=== PATIENT | male | born 1985 | race Caucasian/White ===

== ENCOUNTER 2021-02-22 07:07 | Day surgery (SDC) | payer BC ==
--- NOTE | 2021-02-19 12:00 | HP ---
PATIENT: RONNY KING MEDICAL RECORD: [id number] ACCOUNT: [id number] LOCATION:[facility] : 81 ADMISSION DATE: 02/22/21 PCP: DEBORA RAYO DO HISTORY AND PHYSICAL EXAMINATION HISTORY OF PRESENT ILLNESS: Ronny is 35. He has significant problems with his sleep, unable to use CPAP, combination of problems. He has nasal obstruction, snoring and severe apnea. He has been admitted for a tonsillectomy, uvulectomy, septoplasty and bilateral inferior turbinate reduction. PAST MEDICAL HISTORY: Sleep apnea, hypertension. MEDICATIONS: Lisinopril. ALLERGIES: No known drug allergies. PHYSICAL EXAMINATION: GENERAL: Healthy-appearing, good historian. Normal voice. FACE: Normal, symmetric, no lesions. EYES: Sclerae and conjunctivae are normal. EARS: Canals and TMs are normal. NOSE: Severe right septal deviation, large inferior turbinates. ORAL CAVITY AND OROPHARYNX: Large tonsils, bulbous uvula. NECK: No masses, no adenopathy. CHEST: Clear. CARDIOVASCULAR: Regular rate and rhythm. No murmur. EXTREMITIES: Normal. IMPRESSION: Sleep apnea, chronic tonsillitis, tonsillar hypertrophy, uvula edema, nasal obstruction refractory to medical management with septal deviation, turbinate hypertrophy and inability to use CPAP. PLAN: Tonsillectomy, uvulectomy, septoplasty and bilateral inferior turbinate reduction. TRANSINT:[id number] Voice Confirmation ID: [id number] DOCUMENT ID: [id number] HOWARD FORBES MD at 1200 CC: [id number] DICTATION DATE: 02/18/21 1056 LEATHER FITTER: 02/18/21 1210 [facility] [address] [id number]
[~2021-02-22] VITALS: Ht 175.3 cm; Wt 122.5 kg
--- NOTE | ~2021-02-22 | OP ---
PATIENT NAME: JULIANA KING MEDICAL RECORD: [id number] :81 LOCATION:[facility] ADMISSION DATE: SURGEON: HOWARD RIVERA MD DATE OF OPERATION: 02/22/2021 PREOPERATIVE DIAGNOSES: Nasal obstruction, septal deviation, turbinate hypertrophy, chronic tonsillitis, recurrent uvula edema, sleep apnea. POSTOPERATIVE DIAGNOSES: Nasal obstruction, septal deviation, turbinate hypertrophy, chronic tonsillitis, recurrent uvula edema, sleep apnea. PROCEDURE: Septoplasty, tonsillectomy, uvulectomy, bilateral inferior turbinate reduction. SURGEON: Howard Rivera M.D. ANESTHESIA: General orotracheal. BLOOD LOSS: Less than 5 mL. SPECIMENS: Right and left tonsil. NASAL PACKING: Carcamo splints bilaterally. COMPLICATIONS: None. DISPOSITION: Recovery, stable. DESCRIPTION OF PROCEDURE: He was brought to the operating room and placed in supine position, sedated and intubated by anesthesia. The eyes were taped. Table was turned 90 degrees. Head drape was applied. He was positioned, prepped and draped in the usual fashion. Both sides of the nose were examined using a headlight and nasal speculum. Septum was really severely deviated to the right with a lot of redundant cartilage rolled up in the floor of the nose on the left side and large septal spur. The septum, floor of the nose and inferior turbinates were injected with a total of less than 2 mL of 1% lidocaine 1:100,000 epinephrine and 2 Afrin pledgets were placed on each side. Then, a Adam-Kaz mouth gag was carefully inserted and elevated on a towel on his chest. The palate was examined and palpated a long bulbous uvula and very large tonsils. A red rubber catheter was placed through the right side of the nose and retracted with a tonsil clamp. A mirror was used to examine the nasopharynx. The back of the inferior turbinates were cauterized a little bit and then a little bit of adenoid tissue, but the choanae and nasopharynx were normal. The red rubber catheter was let down and removed. The right tonsil was grasped and the superior pole with a straight Allis clamp. Spatula tip cautery on a setting of 8 was used to dissect out the tonsil along its capsule, preserving the anterior and posterior tonsillar pillar. The left tonsil was removed in the same fashion. The uvula was grasped with a spatula tip cautery on a setting of 10 was used to remove the uvula near its base. Then pledgets were removed from the nose. Both sides of nose were irrigated with saline. The pharynx was suctioned. Tonsillar fossae were agitated. Suction cautery on a setting of 18 was used to control minimal oozing. With the field completely clean and dry, the uvula defect was closed with interrupted 3-0 Vicryl and the superior tonsillar fossils were closed with a horizontal mattress 3-0 Vicryl sutures. Then, using a headlight and nasal speculum the nose was examined. A OPERATIVE REPORT [id number] JULIANA KING left-sided Dillwyn incision was made because of the right anterior septum was very excoriated, thin and dry. This mucoperichondrial flap was elevated. The redundant cartilage on the floor of the nose was ruled out. There was trimmed off at the height of the maxillary spine to allow the septum to fall back into the midline. The bony cartilaginous junction was disarticulated and retracted laterally. Incisions were made in the cartilage. Bony spur was removed. This allowed the septum to return to the midline. Then, both inferior turbinates were medialized. A Gruenwald was used to take down the inferior redundant portion. Suction cautery was used to stop any bleeding. Both outfractured with the Wadsworth elevator. The nasal septum was again carefully inspected. The Dillwyn incision was closed with interrupted 4-0 chromic. Nasopharynx was suctioned and Carcamo splints with mupirocin ointment were placed bilaterally and sutured to the anterior membranous septum with a 2-0 Prolene on a Franko needle. He was awakened, extubated, and transported to recovery in good condition. No complications. TRANSINT:[id number] Voice Confirmation ID: [id number] DOCUMENT ID: [id number] HOWARD RIVERA MD CC: [id number] DICTATION DATE: 02/22/21 1148 PA[employer] STRATEGIST: 02/22/21 221 [facility] 02/22/21 [facility] [address] [id number]
[~2021-02-22 07:07] MED LIST: LISINOPRIL20 MG PO
[2021-02-22 07:24] LABS: BASOPHILS 0.3 % (0-2); HEMATOCRIT 45.9 % (42.0-54.0); HEMOGLOBIN 15.2 g/dL (13.5-17.5); IMMATURE GRANULOCYTES 0.1 % (0-5); LYMPHOCYTE ABS# 2.95 10x3/uL (1.32-3.57); LYMPHOCYTES 42.1 % (15-50); MCH 28.4 pg (26.0-34.0); MCHC 33.1 g/dL (31.0-37.0); MCV 85.6 fL (80.0-100.0); MEAN PLATELET VOLUME 10.9 fL (7.4-10.4); MONOCYTES 8.1 % (2-11); NEUTROPHIL ABS# 3.31 10x3/uL (1.78-5.38); NEUTROPHILS 47.4 % (40-80); PLATELET COUNT 298 10x3/uL (130-400); RBC 5.36 10x6/uL (4.20-6.10); RDW 13.5 % (11.5-14.5)
[2021-02-22 07:31] LABS: CALC OSMOLALITY 273 mosm/kg (275-300); CALCIUM 8.7 mg/dL (8.5-10.1); CARBON DIOXIDE 25.4 mmol/L (21.0-32.0); CHLORIDE - SERUM 103 mmol/L (98-107); GLUCOSE 107 mg/dL (74-106); POTASSIUM - SERUM 4.2 mmol/L (3.5-5.1); SODIUM 136 mmol/L (136-145); UREA NITROGEN 17 mg/dL (7-18); eGFR NON AFRICAN AMERICAN 89 mL/min (90-120)
[2021-02-22 08:44] VITALS: BP 142/86; Ht 175.3 cm; Wt 122.5 kg
--- NOTE | 2021-02-22 13:17 | NUR ---
DC INSTRUCTIONS GIVEN TO PT/FAMILY. STATE UNDERSTANDING. DC'V IV CATH FULLY INTACT.
--- NOTE | 2021-02-22 13:37 | NUR ---
PT LEFT UNIT VIA WC AT 1330
== END 2021-02-22 13:30 | disposition home or self-care (01) ==
LOC: D.OPS 07:07
PROVIDERS: Anesthesiology; ATTEND Otolaryngology
DX: J34.89 Other specified disorders of nose and nasal sinuses (principal); J34.2 Deviated nasal septum; J34.3 Hypertrophy of nasal turbinates; J35.01 Chronic tonsillitis; K13.79 Other lesions of oral mucosa; G47.30 Sleep apnea, unspecified; I10 Essential (primary) hypertension